=== PATIENT | female | born 1960 | race Caucasian/White ===

== ENCOUNTER 2019-01-03 11:32 | Emergency (ER) | payer OTHER ==
[2019-01-03 11:42] VITALS: BP 114/68; PULSE 70; TEMP 97.8; BMI 27.4
--- NOTE | 2019-01-03 12:08 | PDOC ---
History of Present Illness - General Chief Complaint: Eye Problem Stated Complaint: RT. EYE PAIN Time Seen by Provider: 01/03/19 11:50 History Source: Patient, Parent(s), Spouse () Exam Limitations: No Limitations - History of Present Illness Associated Symptoms: denies: fever/chills, headaches, nausea/vomiting, shortness of breath Past History - Travel Traveled outside of the country in the last 30 days: No Close contact w/someone who was outside of country & ill: No - Past Medical History Allergies/Adverse Reactions: Allergies Allergy/AdvReac Type Severity Reaction Status Date / Time No Known Allergies Allergy Verified 01/03/19 11:42 Home Medications: Ambulatory Orders Aspirin [ASA -] 81 mg PO DAILY 06/14/17 Levothyroxine Sodium [Synthroid] 88 mcg PO 06/14/17 Pantoprazole Sodium [Protonix] 40 mg PO 06/14/17 Simvastatin [Zocor -] 5 mg PO HS 06/14/17 metFORMIN HCL [Metformin HCl] 500 mg PO DAILY 06/14/17 Amoxicillin/Potassium Clav [Augmentin 875-125 Tablet] 1 each PO BID 7 Days #14 tablet 01/03/19 Erythromycin 0.5% Eye Ointment [Erythromycin 0.5% Eye Ointment -] 1 applic OU TID 7 Days #1 tube 01/03/19 Anemia: Yes Asthma: No Cancer: No Cardiac Disorders: No CVA: No COPD: No CHF: No Dementia: No Diabetes: Yes (pre) GI Disorders: No Disorders: No HTN: No Hypercholesterolemia: Yes Liver Disease: No Seizures: No Thyroid Disease: Yes (hypo) - Suicide/Smoking/Psychosocial Hx Smoking History: Never smoked Hx Alcohol Use: No Drug/Substance Use Hx: No Hx Substance Use Treatment: No Review of Systems - Review of Systems Able to Perform ROS?: Yes Is the patient limited Burkin[place] proficient: No Constitutional: No: Chills, Fever HEENTM: Yes: Eye Pain (R eye discomfort). No: Blurred Vision, Tearing, Double Vision, Ear Pain, Throat Pain Respiratory: No: Shortness of Breath Neurological: No: Headache, Numbness, Tingling, Dizziness *Physical Exam - Vital Signs Last Vital Signs Temp Pulse Resp BP Pulse Ox 97.8 F 70 18 114/68 99 01/03/19 11:39 01/03/19 11:39 01/03/19 11:39 01/03/19 11:39 01/03/19 11:39 - Physical Exam General Appearance: Yes: Nourished HEENT: positive: EOMI, VÍCTOR, Other (R eye: + internal sty noted with sweling in infraorbital region) Respiratory/Chest: positive: Lungs Clear, Normal Breath Sounds Cardiovascular: positive: Regular Rhythm, Regular Rate, S1, S2 Extremity: positive: Normal Capillary Refill, Normal Inspection Integumentary: positive: Normal Color 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 exam with sty and early preseptal cellulites warm compresses abx f/u ophthalmology 01/03/19 13:22 *DC/Admit/Observation/Transfer Diagnosis at time of Disposition: Preseptal cellulitis of right eye Sty, internal Qualifiers: Laterality: right Eyelid: unspecified eyelid Qualified Code(s): H00.023 - Hordeolum internum right eye, unspecified eyelid - Discharge Dispostion Disposition: HOME Condition at time of disposition: Stable Decision to Admit order: No - Prescriptions Prescriptions: Amoxicillin/Potassium Clav [Augmentin 875-125 Tablet] 1 each PO BID 7 Days #14 tablet Erythromycin 0.5% Eye Ointment [Erythromycin 0.5% Eye Ointment -] 1 applic OU TID 7 Days #1 tube - Referrals Referrals: Bassam Caballero MD [Primary Care Provider] - Bran Smalls MD [Staff Physician] - - Patient Instructions Printed Discharge Instructions: DI for Hordeolum Additional Instructions: Your have an infection of the eye lid please apply continuous warm compress use eye ointment as prescribed also take antibiotic for infection follow up with eye clinic in 2 days for reassessment return to the ER If worsening redness and swelling occurs - Post Discharge Activity
== END 2019-01-03 12:15 | disposition home or self-care (01) ==
LOC: JERFT 11:32
DX: H00.023 Hordeolum internum right eye, unspecified eyelid (principal); L03.213 Periorbital cellulitis; E03.9 Hypothyroidism, unspecified; R73.03 Prediabetes; E78.00 Pure hypercholesterolemia, unspecified
CPT/HCPCS: 99281-25

== ENCOUNTER 2019-03-09 09:19 | Emergency (ER) | payer OTHER ==
[2019-03-09 09:47] VITALS: BP 108/63; PULSE 65; TEMP 98.1; BMI 27.4
[2019-03-09] MEDS ORDERED: KETOROLAC TROMETHAMINE 30 MG/1 ML VIAL IVPUSH ONE (10:17)
[2019-03-09] MEDS ORDERED: KETOROLAC TROMETHAMINE 60 MG/2 ML VIAL ONE (10:33)
[2019-03-09 11:07] LABS: BASO % 0.7 % (0-2.0); EOS % 5.3 % (0-4.5); HEMATOCRIT 38.5 % (32.4-45.2); HEMOGLOBIN 12.6 GM/dL (10.7-15.3); LYMPH % 34.1 % (8-40); MCH 25.8 pg (25.7-33.7); MCHC 32.8 g/dl (32.0-36.0); MEAN CELL VOLUME 78.8 fl (80-96); MEAN PLT VOLUME 8.8 fl (7.5-11.1); MONO % 7.4 % (3.8-10.2); NEUT % 52.5 % (42.8-82.8); PLATELET COUNT 196 K/MM3 (134-434); RBC 4.89 M/mm3 (3.60-5.2); RDW 14.2 % (11.6-15.6); WHITE BLOOD COUNT 5.9 K/mm3 (4.0-10.0)
[2019-03-09 11:08] LABS: EPI CELLS 2.8 /HPF (0-5/HPF); HYALINE CASTS 0 /lpf (0-8); PH,URINE 6.5 (5.0-8.0); URINE APPEARANCE CLEAR; URINE BACTERIA 22.5 /hpf (NEGATIVE); URINE BILIRUBIN NEGATIVE (NEGATIVE); URINE COLOR YELLOW; URINE GLUCOSE (UA) NEGATIVE (NEGATIVE); URINE KETONE NEGATIVE (NEGATIVE); URINE LEUK ESTERASE NEGATIVE (NEGATIVE); URINE NITRITE NEGATIVE (NEGATIVE); URINE PROTEIN NEGATIVE (NEGATIVE); URINE RBC 12 /hpf (0-4); URINE UROBILINOGEN 0.2 mg/dL (0.2-1.0); URINE WBC 1 /hpf (0-5)
[2019-03-09] MEDS ORDERED: KETOROLAC TROMETHAMINE 60 MG/2 ML VIAL IM ONE (11:11)
[2019-03-09 11:36] LABS: ALBUMIN 3.8 g/dl (3.4-5.0); BILIRUBIN,TOTAL 0.2 mg/dL (0.2-1); BLOOD UREA NITROGEN 12.6 mg/dL (7-18); CREATININE 0.6 mg/dL (0.55-1.3); POTASSIUM 4.4 mmol/L (3.5-5.1); TOT PROT 7.2 g/dl (6.4-8.2)
--- NOTE | 2019-03-09 12:23 | PDOC ---
History of Present Illness - General Chief Complaint: Pain, Acute Stated Complaint: FLANK PAIN Time Seen by Provider: 03/09/19 09:54 History Source: Patient Exam Limitations: No Limitations - History of Present Illness Travel History: No Initial Comments: 03/09/19 11:09 58-year-old female presents to ED with complaints of left flank pain radiating to her left lower quadrant for the past few days with mild dysuria. Patient denies fever, chills, nausea, abdominal distention, diarrhea, constipation, recent illness or recent travel. Timing/Duration: reports: constant Quality: reports: moderate, sharpness Abdominal Pain Onset Location: reports: LLQ, flank Pain Radiation: reports: back Activities at Onset: reports: none Aggravating Factors: improves with: Movement Alleviating Factors: improves with: None Past History - Travel Traveled outside of the country in the last 30 days: No Close contact w/someone who was outside of country & ill: No - Past Medical History Allergies/Adverse Reactions: Allergies Allergy/AdvReac Type Severity Reaction Status Date / Time No Known Allergies Allergy Verified 03/09/19 09:48 Home Medications: Ambulatory Orders Aspirin [ASA -] 81 mg PO DAILY 06/14/17 Levothyroxine Sodium [Synthroid] 88 mcg PO 06/14/17 Pantoprazole Sodium [Protonix] 40 mg PO 06/14/17 Simvastatin [Zocor -] 5 mg PO HS 06/14/17 metFORMIN HCL [Metformin HCl] 500 mg PO DAILY 06/14/17 Amoxicillin/Potassium Clav [Augmentin 875-125 Tablet] 1 each PO BID 7 Days #14 tablet 01/03/19 Erythromycin 0.5% Eye Ointment [Erythromycin 0.5% Eye Ointment -] 1 applic OU TID 7 Days #1 tube 01/03/19 Anemia: Yes Asthma: No Cancer: No Cardiac Disorders: No CVA: No COPD: No CHF: No Dementia: No Diabetes: Yes (pre) GI Disorders: No Disorders: No HTN: No Hypercholesterolemia: Yes Liver Disease: No Seizures: No Thyroid Disease: Yes (hypo) - Suicide/Smoking/Psychosocial Hx Smoking History: Never smoked Information on smoking cessation initiated: No Hx Alcohol Use: No Drug/Substance Use Hx: No Hx Substance Use Treatment: No Patient Lives Alone: No Lives with/in: spouse/SO Review of Systems - Review of Systems Able to Perform ROS?: Yes Constitutional: No: Symptoms Reported HEENTM: No: Symptoms Reported Respiratory: No: Symptoms reported Cardiac (ROS): No: Symptoms Reported ABD/GI: Yes: Abdominal cramping : Yes: Dysuria, Flank Pain Integumentary: No: Symptoms Reported Neurological: No: Symptoms reported Endocrine: No: Symptoms Reported Hematologic/Lymphatic: No: Symptoms Reported *Physical Exam - Vital Signs Last Vital Signs Temp Pulse Resp BP Pulse Ox 98.1 F 65 19 108/63 98 03/09/19 09:46 03/09/19 09:46 03/09/19 09:46 03/09/19 09:46 03/09/19 09:46 - Physical Exam General Appearance: Yes: Nourished, Appropriately Dressed. No: Apparent Distress HEENT: negative: Pale Conjunctivae Neck: positive: Supple Respiratory/Chest: positive: Lungs Clear, Normal Breath Sounds. negative: Respiratory Distress, Accessory Muscle Use Cardiovascular: positive: Regular Rhythm, Regular Rate. negative: Murmur Gastrointestinal/Abdominal: positive: Soft, Tenderness (left lower quadrant/ left flank) Musculoskeletal: positive: CVA Tenderness (L) (mild) Extremity: positive: Normal Inspection Integumentary: positive: Normal Color, Warm, Moist Neurologic: positive: Motor Strength 5/5 (ambulatory) ED Treatment Course - LABORATORY CBC & Chemistry Diagram: 03/09/19 09:35 03/09/19 09:35 - ADDITIONAL ORDERS Additional order review: Laboratory Results 03/09/19 03/09/19 10:30 09:35 Sodium 138 Potassium 4.4 Chloride 103 Carbon Dioxide 29 Anion Gap 5 L BUN 12.6 Creatinine 0.6 Est GFR (CKD-EPI)AfAm 117.27 Est GFR (CKD-EPI)NonAf 101.18 Random Glucose 101 Calcium 9.0 Total Bilirubin 0.2 AST 19 ALT 28 Alkaline Phosphatase 63 Total Protein 7.2 Albumin 3.8 Urine Color Yellow Urine Appearance Clear Urine pH 6.5 Ur Specific [place] 1.013 Urine Protein Negative Urine Glucose (UA) Negative Urine Ketones Negative Urine Blood 1+ H Urine Nitrite Negative Urine Bilirubin Negative Urine Urobilinogen 0.2 Ur Leukocyte Esterase Negative Urine WBC (Auto) 1 Urine RBC (Auto) 12 Urine Casts (Auto) 0 U Epithel Cells (Auto) 2.8 Urine Bacteria (Auto) 22.5 03/09/19 09:35 RBC 4.89 MCV 78.8 L MCHC 32.8 RDW 14.2 MPV 8.8 Neutrophils % 52.5 Lymphocytes % 34.1 Monocytes % 7.4 Eosinophils % 5.3 H Basophils % 0.7 - RADIOLOGY Radiology Studies Ordered: Category Date Time Status SPIRAL- RENAL-STONE CT [CT] Stat CT Scan 03/09/19 11:47 Ordered - Medications Given in the ED: ED Medications Discontinued Medications Generic Name Dose Route Start Last Admin Trade Name [place] PRN Reason Stop Dose Admin Ketorolac Tromethamine 60 mg 03/09/19 11:11 03/09/19 10:45 Toradol Injection - IM 03/09/19 11:12 60 mg ONCE ONE Administration Medical Decision Making - Medical Decision Making 03/09/19 11:46 Chief complaint: Left abdominal pain accompanied mild dysuria. Patient denies history of renal colic fever, nausea or recent injury. Patient does state pain is worsened with movement Exam: Left lower quadrant/ left flank and mild left CVA tenderness on exam vital signs stable Plan: Labs, urine Toradol and will consider imaging 03/09/19 12:48 Laboratory Tests 03/09/19 03/09/19 03/09/19 09:35 09:35 10:30 WBC 5.9 Hgb 12.6 Hct 38.5 Neutrophils % 52.5 Sodium 138 Potassium 4.4 Chloride 103 Carbon Dioxide 29 Anion Gap 5 L BUN 12.6 Creatinine 0.6 Calcium 9.0 Total Bilirubin 0.2 AST 19 ALT 28 Alkaline Phosphatase 63 Total Protein 7.2 Albumin 3.8 Urine Blood 1+ H Ur Leukocyte Esterase Negative Urine WBC (Auto) 1 Urine RBC (Auto) 12 03/09/19 12:[address] 03/09/19 16:31 Borderline thickening of the endometrial stripe measuring 6 mm which a follow- up is needed. Normal-appearing left ovary with normal vascular flow . 03/09/19 16:31 no left-sided calculus identified. 3 mm mild mid right renal calculi noted with no definitive hydronephrosis. Pelvis negative. Bowels negative. Normal appendix. A small hiatal hernia is noted small umbilical hernia with fat noted. *DC/Admit/Observation/Transfer Diagnosis at time of Disposition: Left lateral abdominal pain - Discharge Dispostion Disposition: HOME Condition at time of disposition: Improved - Referrals Referrals: Bassam Caballero MD [Primary Care Provider] - - Patient Instructions Printed Discharge Instructions: Acute Abdominal Pain Additional Instructions: At this time I am recommending to take Tylenol and Flexeril for discomfort and to follow-up with your [facility]STR[facility] in regards to thickened endometrium noted on ultrasound. Otherwise avoid movements that trigger discomfort and follow-up with your primary care doctor as needed. - Post Discharge Activity
== END 2019-03-09 17:10 | disposition home or self-care (01) ==
LOC: JER 09:19
PROC: 3E0233Z Introduction of Anti-inflammatory into Muscle, Percutaneous Approach (ICD-10-PCS; principal; 2019-03-09)
DX: N20.0 Calculus of kidney (principal); D64.9 Anemia, unspecified; E03.9 Hypothyroidism, unspecified; E78.00 Pure hypercholesterolemia, unspecified; R73.03 Prediabetes
CPT/HCPCS: 36415; 74176-TC; 76856-TC; 80053; 81003; 85025; 87086; 96372; 99281-25

== ENCOUNTER 2020-12-01 15:58 | Observation (INO) | payer OTHER ==
[2020-12-01] MEDS ORDERED: ASPIRIN 81 MG CHEWABLE TABLETS PO ONE (17:07)
[2020-12-01] MEDS ORDERED: ASPIRIN 81 MG CHEWABLE TABLETS ONE (17:19)
[2020-12-01 17:38] LABS: BASO % 0.7 % (0-2.0); EOS % 3.9 % (0-4.5); HEMATOCRIT 37.8 % (32.4-45.2); HEMOGLOBIN 12.5 GM/dL (10.7-15.3); LYMPH % 32.7 % (8-40); MCH 26.4 pg (25.7-33.7); MCHC 33.1 g/dl (32.0-36.0); MEAN CELL VOLUME 79.8 fl (80-96); MEAN PLT VOLUME 8.9 fl (7.5-11.1); NEUT % 56.7 % (42.8-82.8); PLATELET COUNT 185 10^3/uL (134-434); RBC 4.74 M/mm3 (3.60-5.2); RDW 14.2 % (11.6-15.6); WHITE BLOOD COUNT 6.5 K/mm3 (4.0-10.0)
[2020-12-01 17:45] LABS: INR 0.92 (0.83-1.09); PROTHROMBIN TIME (PATIENT) 11.3 SEC (9.7-13.0)
[2020-12-01 17:47] LABS: ACTIVATED PTT 30.1 SECONDS (25.2-36.5)
[2020-12-01 17:59] LABS: CHLORIDE 106 mmol/L (98-107); SODIUM 141 mmol/L (136-145)
[2020-12-01 18:01] LABS: CALCIUM 8.9 mg/dL (8.5-10.1)
[2020-12-01 18:02] LABS: ALBUMIN 3.6 g/dl (3.4-5.0); ANION GAP 4 MMOL/L (8-16); BLOOD UREA NITROGEN 17.4 mg/dL (7-18); CO2 31 mmol/L (21-32); GLUCOSE,RANDOM 200 mg/dL (74-106)
[2020-12-01 18:05] LABS: CREATININE 0.4 mg/dL (0.55-1.3); SGOT/AST 38 U/L (15-37); SGPT/ALT 31 U/L (13-61)
[2020-12-01 18:06] LABS: BILIRUBIN,TOTAL 0.2 mg/dL (0.2-1)
[2020-12-01 18:07] LABS: TOT PROT 6.9 g/dl (6.4-8.2)
[2020-12-01 18:08] LABS: ALK PHOS 55 U/L (45-117)
[2020-12-02] MEDS ORDERED: HEPARIN NA (PORCINE) 5,000 UNITS/ML 1ML VIAL ONE (01:40)
[2020-12-02] MEDS ORDERED: INSULIN SLIDING SCALE (NOVOLOG) 1 VIAL SQ ONE (01:41)
[2020-12-02] MEDS: HEPARIN NA (PORCINE) 5,000 UNITS/ML 1ML VIAL SQ SCH ×2 (02:03→09:25)
[2020-12-02] MEDS: INSULIN SLIDING SCALE (NOVOLOG) 1 VIAL SQ SCH ×4 (02:04→17:29)
[2020-12-02 02:26] VITALS: BMI 32.3
[2020-12-02] MEDS ORDERED: IBUPROFEN 600 MG TABLET (FP) PO PRN (02:32)
[2020-12-02 08:17] LABS: BASO % 0.8 % (0-2.0); EOS % 4.9 % (0-4.5); HEMOGLOBIN 12.2 GM/dL (10.7-15.3); LYMPH % 43.1 % (8-40); MCH 26.3 pg (25.7-33.7); MCHC 32.9 g/dl (32.0-36.0); MEAN CELL VOLUME 79.8 fl (80-96); MEAN PLT VOLUME 8.9 fl (7.5-11.1); MONO % 7.4 % (3.8-10.2); NEUT % 43.8 % (42.8-82.8); PLATELET COUNT 180 10^3/uL (134-434); RBC 4.63 M/mm3 (3.60-5.2); RDW 13.9 % (11.6-15.6); WHITE BLOOD COUNT 5.6 K/mm3 (4.0-10.0)
[2020-12-02 08:21] LABS: CHLORIDE 105 mmol/L (98-107); SODIUM 140 mmol/L (136-145)
[2020-12-02 08:24] LABS: ANION GAP 6 MMOL/L (8-16); BLOOD UREA NITROGEN 12.3 mg/dL (7-18); CO2 29 mmol/L (21-32); GLUCOSE,RANDOM 111 mg/dL (74-106)
[2020-12-02 08:27] LABS: CREATININE 0.5 mg/dL (0.55-1.3)
[2020-12-02] MEDS ORDERED: ACETAMINOPHEN 325 MG TABLET (FP) PO PRN (08:58)
[2020-12-02] MEDS ORDERED: LEVOTHYROXINE NA 88 MCG TABLET (FP) PO SCH ×2 (10:00)
[2020-12-02] MEDS ORDERED: ASPIRIN 81 MG CHEWABLE TABLETS PO SCH (10:00)
[2020-12-02 15:08] VITALS: TEMP 98.5
[2020-12-02 17:54] VITALS: BP 123/61; PULSE 57
[2020-12-02] MEDS ORDERED: ATORVASTATIN CA 10 MG TABLET (FP) PO SCH (22:00)
== END 2020-12-02 18:35 | disposition home or self-care (01) ==
LOC: JER 15:58 → JERBED 18:17 → J4W 12-02 01:50
PROVIDERS: ADMIT Internal Medicine; ATTEND Family Medicine
PROC: 3E013GC Introduction of Other Therapeutic Substance into Subcutaneous Tissue, Percutaneous Approach (ICD-10-PCS; principal; 2020-12-01)
DX: R07.9 Chest pain, unspecified (principal); E03.9 Hypothyroidism, unspecified; E11.9 Type 2 diabetes mellitus without complications; Z79.84 Long term (current) use of oral hypoglycemic drugs; E78.5 Hyperlipidemia, unspecified; D64.9 Anemia, unspecified
CPT/HCPCS: 36415; 71045-TC-FY; 78452-TC; 80048; 80053; 82962; 83036; 83735; 84443; 84484; 85025; 85610; 85730; 93005; 93010; 93017; 93306-TC; 96372; 99285-25; A9502; C9803; G0378; J1644; U0003; U0005

== ENCOUNTER 2021-02-26 20:24 | Emergency (ER) | payer OTHER ==
[2021-02-26 21:11] VITALS: BP 120/74; PULSE 67; TEMP 98.4; BMI 24.7
[2021-02-26] MEDS ORDERED: GABAPENTIN 100 MG CAPSULE PO ONE (22:08)
[2021-02-26] MEDS ORDERED: NYSTATIN POWDER 100,000 UNITS/GM - 15 GM TOPICAL POWDER TP ONE (22:45)
[2021-02-26] MEDS ORDERED: GABAPENTIN 100 MG CAPSULE ONE (22:47)
[2021-02-26] MEDS ORDERED: TOLNAFTATE 1% POWDER 45 GM POW TP SCH (23:00)
== END 2021-02-26 23:45 | disposition home or self-care (01) ==
LOC: JER 20:24
DX: B35.3 Tinea pedis (principal); G62.9 Polyneuropathy, unspecified
CPT/HCPCS: 99283-25

== ENCOUNTER 2022-01-25 20:07 | Inpatient (IN) | payer OTHER ==
[2022-01-25] MEDS ORDERED: SODIUM CHLORIDE 1,000 ML IV STA (21:04)
[2022-01-25] MEDS ORDERED: CLINDAMYCIN 600MG PREMIX IVPB 600 MG/50 ML BAG IVPB ONE ×2 (21:22→21:24)
[2022-01-25 21:52] LABS: BASO % 0.2 % (0-2.0); EOS % 0.4 % (0-4.5); HEMATOCRIT 41.3 % (32.4-45.2); HEMOGLOBIN 13.8 GM/dL (10.7-15.3); LYMPH % 11.8 % (8-40); MCH 26.2 pg (25.7-33.7); MCHC 33.5 g/dl (32.0-36.0); MEAN CELL VOLUME 78.3 fl (80-96); MEAN PLT VOLUME 8.9 fl (7.5-11.1); MONO % 2.4 % (3.8-10.2); NEUT % 85.2 % (42.8-82.8); PLATELET COUNT 202 10^3/uL (134-434); RBC 5.28 M/mm3 (3.60-5.2); RDW 14.3 % (11.6-15.6)
[2022-01-25 21:55] LABS: EPI CELLS 10 /uL (0-25.1); HYALINE CASTS 0 /uL (0-3.1); PH,URINE 7.5 (5.0-8.0); URINE APPEARANCE CLEAR; URINE BACTERIA 59 /uL (0-1359); URINE BILIRUBIN NEGATIVE (NEGATIVE); URINE COLOR YELLOW; URINE GLUCOSE (UA) NEGATIVE (NEGATIVE); URINE KETONE NEGATIVE (NEGATIVE); URINE LEUK ESTERASE NEGATIVE (NEGATIVE); URINE NITRITE NEGATIVE (NEGATIVE); URINE PROTEIN NEGATIVE (NEGATIVE); URINE RBC 120 /uL (0-23.9); URINE WBC 3 /uL (0-25.8)
[2022-01-25 22:02] LABS: INR 0.98 (0.83-1.09); PROTHROMBIN TIME (PATIENT) 11.3 SEC (9.7-13.0)
[2022-01-25 22:05] LABS: ACTIVATED PTT 26.6 SECONDS (25.2-36.5)
[2022-01-25 23:02] LABS: CALCIUM 9.1 mg/dL (8.5-10.1)
[2022-01-25 23:03] LABS: ALBUMIN 3.9 g/dl (3.4-5.0); BLOOD UREA NITROGEN 12.7 mg/dL (7-18)
[2022-01-25 23:06] LABS: CREATININE 0.6 mg/dL (0.55-1.3)
[2022-01-25 23:07] LABS: BILIRUBIN,TOTAL 0.4 mg/dL (0.2-1)
[2022-01-25 23:08] LABS: TOT PROT 7.1 g/dl (6.4-8.2)
[2022-01-26] MEDS: CLINDAMYCIN 600MG PREMIX IVPB 600 MG/50 ML BAG IVPB SCH ×2 (02:08→11:08)
[2022-01-26 06:13] VITALS: RESP 18; BMI 29.8
[2022-01-26] MEDS: INSULIN SLIDING SCALE (NOVOLOG) 1 VIAL SQ SCH ×4 (06:50→21:37)
[2022-01-26] MEDS ORDERED: INSULIN (NOVOLOG) ASPART 100 UNITS/ML 10ML VIAL ONE (10:59)
[2022-01-26] MEDS: FAMOTIDINE 20 MG TABLET PO SCH (11:08)
[2022-01-26] MEDS: BACITRACIN 15 GM TUBE TOPICAL OINTMENT TP SCH (11:08)
[2022-01-26] MEDS: GABAPENTIN 100 MG CAPSULE PO SCH ×2 (14:27→21:34)
[2022-01-26] MEDS ORDERED: AMMONIUM LACTATE 12% LOTION 225 GM BOTTLE TP PRN (17:39)
[2022-01-26] MEDS ORDERED: predniSONE 20 MG TABLET (UD) PO SCH (17:45)
[2022-01-26] MEDS: LORATADINE 10 MG TABLET PO SCH (18:22)
[2022-01-26] MEDS: HEPARIN NA (PORCINE) 5,000 UNITS/ML 1ML VIAL SQ SCH (21:34)
[2022-01-27] MEDS: methylPREDNISolone NA SUCC 40 MG/1 ML VIAL IVPUSH SCH ×4 (00:15→17:31)
[2022-01-27] MEDS: INSULIN SLIDING SCALE (NOVOLOG) 1 VIAL SQ SCH ×4 (06:42→21:06)
[2022-01-27] MEDS: GABAPENTIN 100 MG CAPSULE PO SCH ×3 (06:43→21:02)
[2022-01-27] MEDS: LEVOTHYROXINE NA 88 MCG TABLET (FP) PO SCH (06:44)
[2022-01-27] MEDS: BACITRACIN 15 GM TUBE TOPICAL OINTMENT TP SCH (08:59)
[2022-01-27] MEDS: FAMOTIDINE 20 MG TABLET PO SCH (08:59)
[2022-01-27] MEDS: LORATADINE 10 MG TABLET PO SCH (08:59)
[2022-01-27] MEDS: HEPARIN NA (PORCINE) 5,000 UNITS/ML 1ML VIAL SQ SCH ×2 (08:59→21:02)
[2022-01-27 09:00] LABS: BASO % 0.1 % (0-2.0); EOS % 0.1 % (0-4.5); HEMATOCRIT 38.5 % (32.4-45.2); HEMOGLOBIN 12.9 GM/dL (10.7-15.3); MCH 25.9 pg (25.7-33.7); MCHC 33.5 g/dl (32.0-36.0); MEAN CELL VOLUME 77.4 fl (80-96); MEAN PLT VOLUME 9.7 fl (7.5-11.1); MONO % 0.8 % (3.8-10.2); PLATELET COUNT 161 10^3/uL (134-434); RBC 4.98 M/mm3 (3.60-5.2); RDW 14.1 % (11.6-15.6); WHITE BLOOD COUNT 7.2 K/mm3 (4.0-10.0)
[2022-01-27 09:28] LABS: BLOOD UREA NITROGEN 11.1 mg/dL (7-18); CALCIUM 8.4 mg/dL (8.5-10.1)
[2022-01-27 09:32] LABS: CREATININE 0.5 mg/dL (0.55-1.3)
[2022-01-27] MEDS: HYDROCORTISONE 2.5% LOTION - 1 BOTTLE TP PRN ×2 (10:04→21:07)
[2022-01-27] MEDS ORDERED: INSULIN (NOVOLOG) ASPART 100 UNITS/ML 10ML VIAL ONE (11:06)
[2022-01-27] MEDS: diphenhydrAMINE HCL 25 MG CAPSULE (FP) PO PRN (21:02)
[2022-01-28] MEDS: methylPREDNISolone NA SUCC 40 MG/1 ML VIAL IVPUSH SCH ×3 (01:16→17:46)
[2022-01-28] MEDS: GABAPENTIN 100 MG CAPSULE PO SCH ×3 (05:52→21:24)
[2022-01-28] MEDS: LEVOTHYROXINE NA 88 MCG TABLET (FP) PO SCH (06:34)
[2022-01-28] MEDS: INSULIN SLIDING SCALE (NOVOLOG) 1 VIAL SQ SCH ×5 (06:34→21:29)
[2022-01-28] MEDS: HEPARIN NA (PORCINE) 5,000 UNITS/ML 1ML VIAL SQ SCH ×2 (09:48→21:25)
[2022-01-28] MEDS: LORATADINE 10 MG TABLET PO SCH (09:48)
[2022-01-28] MEDS: FAMOTIDINE 20 MG TABLET PO SCH (09:48)
[2022-01-28] MEDS: BACITRACIN 15 GM TUBE TOPICAL OINTMENT TP SCH (09:48)
[2022-01-28] MEDS: ACETAMINOPHEN 325 MG TABLET (FP) PO PRN (21:24)
[2022-01-28] MEDS: diphenhydrAMINE HCL 25 MG CAPSULE (FP) PO PRN (21:24)
[2022-01-29] MEDS: GABAPENTIN 100 MG CAPSULE PO SCH (06:26)
[2022-01-29] MEDS: LEVOTHYROXINE NA 88 MCG TABLET (FP) PO SCH (06:30)
[2022-01-29] MEDS: INSULIN SLIDING SCALE (NOVOLOG) 1 VIAL SQ SCH ×2 (06:48→11:26)
[2022-01-29] MEDS: LORATADINE 10 MG TABLET PO SCH (09:30)
[2022-01-29] MEDS: ACETAMINOPHEN 325 MG TABLET (FP) PO PRN (09:30)
[2022-01-29] MEDS: diphenhydrAMINE HCL 25 MG CAPSULE (FP) PO PRN (09:30)
[2022-01-29] MEDS: HEPARIN NA (PORCINE) 5,000 UNITS/ML 1ML VIAL SQ SCH (09:31)
[2022-01-29] MEDS: BACITRACIN 15 GM TUBE TOPICAL OINTMENT TP SCH (09:31)
[2022-01-29] MEDS ORDERED: FAMOTIDINE 20 MG TABLET PO SCH (10:00)
[2022-01-29] MEDS ORDERED: methylPREDNISolone NA SUCC 40 MG/1 ML VIAL IVPUSH SCH (10:00)
[2022-01-29] MEDS ORDERED: predniSONE 20 MG TABLET (UD) PO SCH (10:00)
[2022-01-29 14:29] VITALS: BP 103/48; PULSE 58; TEMP 98.3
== END 2022-01-29 15:57 | disposition home or self-care (01) | DRG 383 ==
LOC: JER 20:07 → JERFT 20:07 → JERBED 23:15 → J6S 01-26 05:44
PROVIDERS: ADMIT Hospitalist; ATTEND Family Medicine
DX: L03.317 Cellulitis of buttock (principal); R21 Rash and other nonspecific skin eruption; T37.8X5A Adverse effect of other specified systemic anti-infectives and antiparasitics, initial encounter; E03.9 Hypothyroidism, unspecified; D64.9 Anemia, unspecified; L50.9 Urticaria, unspecified; E78.5 Hyperlipidemia, unspecified; R31.29 Other microscopic hematuria; E11.40 Type 2 diabetes mellitus with diabetic neuropathy, unspecified; B35.3 Tinea pedis; Z86.39 Personal history of other endocrine, nutritional and metabolic disease
CPT/HCPCS: 36415; 71046-TC-FY; 80048; 80053; 81003; 82962; 83036; 84443; 85025; 85610; 85730; 87040; 87086; 93005; 93010; 99285-25; C9803-CS; J1644; U0003; U0005

== ENCOUNTER 2024-03-05 10:47 | Emergency (ER) | payer OTHER ==
[2024-03-05 11:08] VITALS: BP 125/68; PULSE 63; RESP 16; TEMP 98.2; BMI 25.9
[2024-03-05] MEDS ORDERED: LIDOCAINE 4% PATCH TP ONE (11:30)
[2024-03-05] MEDS ORDERED: KETOROLAC TROMETHAMINE 30 MG/1 ML VIAL ONE (11:31)
[2024-03-05] MEDS ORDERED: METHOCARBAMOL 500 MG TABLET ONE (11:31)
[2024-03-05] MEDS: LIDOCAINE 4% PATCH TP ONE (11:47)
[2024-03-05] MEDS: KETOROLAC TROMETHAMINE 30 MG/1 ML VIAL IM ONE (11:47)
[2024-03-05] MEDS: METHOCARBAMOL 500 MG TABLET PO ONE (11:48)
[2024-03-05] MEDS ORDERED: LIDOCAINE PATCH REMOVAL MC SCH (22:00)
== END 2024-03-05 11:49 | disposition home or self-care (01) ==
LOC: JERFT 10:47
PROC: 3E0233Z Introduction of Anti-inflammatory into Muscle, Percutaneous Approach (ICD-10-PCS; principal; 2024-03-05)
DX: S39.012A Strain of muscle, fascia and tendon of lower back, initial encounter (principal); M54.6 Pain in thoracic spine; X50.0XXA Overexertion from strenuous movement or load, initial encounter
CPT/HCPCS: 96372; 99284-25